=== PATIENT | female | born 1960 | race Caucasian/White ===

== ENCOUNTER 2020-08-17 12:48 | Emergency (ER) | payer MEDICAID ==
[~2020-08-17] VITALS: Ht 172.7 cm; Wt 74.8 kg
[2020-08-17 12:59] VITALS: BP_SYST 158
--- NOTE | 2020-08-17 13:03 | NUR ---
placed in bed 6
--- NOTE | 2020-08-17 13:05 | NUR ---
Pt bib EMS s/p fall from 6ft ladder while putting up kathrin lights. Reports hitting her head and her left shoulder. Denies any pain at this time, states she's just sore. V/S stable, pt is afebrile. Currently resting in bed, will continue to monitor.
--- NOTE | 2020-08-17 13:10 | NUR ---
ER Dr. Perez at bedside examining patient.
--- NOTE | 2020-08-17 13:20 | NUR ---
Patient transported to radiology via wheelchair, accompanied by staff.
[2020-08-17 14:25] VITALS: BP_SYST 158
--- NOTE | 2020-08-17 14:26 | NUR ---
Patient given written and verbal discharge instructions and verbalizes understanding. ER MD discussed with patient the results and treatment provided. Patient in stable condition. ID arm band removed. Rx of Motrin given. Patient educated on pain management and to follow up with PMD. Pain Scale 0. Opportunity for questions provided and answered. Medication side effect fact sheet provided.
== END 2020-08-17 14:25 | disposition home or self-care (01) ==
LOC: SED 12:48
DX: S20.219A Contusion of unspecified front wall of thorax, initial encounter (principal); S00.03XA Contusion of scalp, initial encounter; R03.0 Elevated blood-pressure reading, without diagnosis of hypertension; E11.9 Type 2 diabetes mellitus without complications; W11.XXXA Fall on and from ladder, initial encounter; Y93.89 Activity, other specified; Y92.89 Other specified places as the place of occurrence of the external cause; Y99.8 Other external cause status
CPT/HCPCS: 70450-TC; 71045; 71100; 72125-TC; 76376; 99285

== ENCOUNTER 2020-11-20 17:46 | Emergency (ER) | payer MEDICAID ==
[~2020-11-20] VITALS: Ht 170.2 cm; Wt 81.6 kg
[2020-11-20 18:00] VITALS: BP_SYST 148
[2020-11-20] MEDS ORDERED: NACL 0.9% 1,000 ML IV ONE (18:30)
[2020-11-20] MEDS ORDERED: KETOROLAC TROMETHAMINE 30 MG VIAL IVP ONE (18:30)
[2020-11-20 19:09] LABS: BASOPHILS % (AUTO) 0.5 % (0.0-2.0); EOSINOPHILS # (AUTO) 0.1 K/uL (0.0-0.4); EOSINOPHILS % (AUTO) 1.5 % (0.0-4.0); HEMATOCRIT 39.3 % (36-48); HEMOGLOBIN 13.5 g/dL (12.0-16.0); LYMPHOCYTES # (AUTO) 2.2 K/uL (1.0-5.5); LYMPHOCYTES % (AUTO) 31.9 % (20.5-51.5); MEAN CORPUSCULAR HEMOGLOBIN 31 pg (27-31); MEAN CORPUSCULAR HGB CONC 35 % (32-36); MEAN CORPUSCULAR VOLUME 89 fL (79.0-98.0); MONOCYTES # (AUTO) 0.4 K/uL (0.0-1.0); MONOCYTES % (AUTO) 6.1 % (1.7-9.3); PLATELET COUNT (AUTO) 178 K/uL (130-430); RED BLOOD CELL COUNT(AUTO) 4.44 MIL/uL (4.2-6.2); RED CELL DISTRIBUTION WIDTH 13.6 % (9.0-15.0); WHITE BLOOD COUNT (AUTO) 6.7 K/uL (4.8-10.8)
[2020-11-20] MEDS ORDERED: ONDA4TAB5 PO (19:28)
[2020-11-20] MEDS ORDERED: CIPR-211 PO (19:28)
[2020-11-20] MEDS ORDERED: IBUP-1971 PO (19:28)
[2020-11-20 19:29] LABS: CALCIUM 9.5 mg/dL (8.4-11.0); POTASSIUM 4.4 mmol/L (3.5-5.1)
[2020-11-20 19:35] LABS: ALBUMIN 3.8 g/dL (3.4-4.8); TOTAL BILIRUBIN 0.2 mg/dL (0.0-1.0)
[2020-11-20 19:35] LABS: BILIRUBIN,URINE NEGATIVE (NEGATIVE); BLOOD, URINE 1+ (NEGATIVE); COLOR,URINE YELLOW (YELLOW); GLUCOSE,URINE 3+ (NEGATIVE); KETONES,URINE NEGATIVE (NEGATIVE); LEUKOCYTE ESTERASE ,URINE NEGATIVE (NEGATIVE); NITRITE, URINE NEGATIVE (NEGATIVE); PROTEIN URINE 1+ (NEGATIVE)
[2020-11-20 19:50] LABS: CLARITY/URINE HAZY (CLEAR)
[2020-11-20 19:54] LABS: BACTERIA,URINE MODERATE /HPF (None Seen)
[2020-11-20] MEDS ORDERED: cefTRIAXone 1 GM IVPB PREMIX 50 ML IV ONE (20:15)
[2020-11-20 23:11] VITALS: BP_SYST 127
== END 2020-11-20 23:10 | disposition home or self-care (01) ==
LOC: SED 17:46
DX: D36.7 Benign neoplasm of other specified sites (principal)
CPT/HCPCS: 36415; 76830; 76857; 80053; 81000; 85025; 87086; 96361; 96365; 96375; 99284; J0696; J1885; J7030

== ENCOUNTER 2021-11-28 05:56 | Emergency (ER) | payer OTHER, MEDICAID ==
[~2021-11-28] VITALS: Ht 175.3 cm; Wt 81.6 kg
[~2021-11-28 05:56] MED LIST: IBUP-1971 PO
[2021-11-28 06:00] VITALS: BP_SYST 118
--- NOTE | 2021-11-28 06:04 | NUR ---
Patient to ER bed 4 to gown for evaluation. Side rails up. Report given to Susan JENNINGS(reg).
--- NOTE | 2021-11-28 06:05 | NUR ---
61 YR OLD A[facility] AMBULATORY FEMALE WITH COMPLAINT OF LEFT LOWER SHARP BACK PAIN 9/10 THAT RADIATES DOWN LEFT HIP TO LEFT LEG FOR TWO DAYS. PT SUSPECTS THAT SHE MAY HAVE UTI, DUE TO BURNING WITH URINATION. PT DENIES ANY CHEST PAIN, OR SOB. PT REPORTS HX, OF HTN, DM II, AND PREVIOUS FALL TWO YEARS AGO.
[2021-11-28] MEDS ORDERED: LIDOCAINE 1%, 20 ML MDV 20 ML ONE (06:29)
[2021-11-28] MEDS ORDERED: LIDOCAINE 1% 10 MG/ML, 20 ML MDV SUBCUT ONE (06:30)
--- NOTE | 2021-11-28 06:32 | NUR ---
MD AT THE BEDSIDE TO EDUCATE PT REGARDING PAIN MEDICATION INJECTIONS, PT VERBALIZED UNDERSTANDING. PT GAVE VERBAL CONSENT TO MD FOR INJECTIONS. PT POSITIONED PRONE AND MD INJECTED PT IN VARIOUS SITES FOR PAIN RELIEF, PT TOLERATED PROCEDURE WELL. PENDING LUMBAR XRAY. WILL MONITOR NEEDED
--- NOTE | 2021-11-28 06:49 | NUR ---
PT OFF UNIT FOR XRAY AT THIS TIME
--- NOTE | 2021-11-28 06:52 | NUR ---
URINE SENT TO LAB
--- NOTE | 2021-11-28 06:57 | NUR ---
PT BACK TO UNIT
--- NOTE | 2021-11-28 07:09 | NUR ---
report given to page
[2021-11-28] MEDS ORDERED: KETOROLAC TROMETHAMINE 30 MG VIAL IM ONE (07:30)
[2021-11-28] MEDS ORDERED: DIAZEPAM 5 MG TABLET (VALIUM) PO ONE (07:30)
[2021-11-28] MEDS ORDERED: KETOROLAC TROMETHAMINE 30 MG VIAL ONE (07:55)
--- NOTE | 2021-11-28 08:08 | NUR ---
PATIENT ALERT, ORIENTED X4 C/O LOW BACK PAIN VALIUM/TORADOL GIVEN WILL CONTINUE TO MONITOR.
[2021-11-28 08:21] LABS: BILIRUBIN,URINE NEGATIVE (NEGATIVE); BLOOD, URINE NEGATIVE (NEGATIVE); CLARITY/URINE CLEAR (CLEAR); COLOR,URINE YELLOW (YELLOW); GLUCOSE,URINE 1+ (NEGATIVE); KETONES,URINE TRACE (NEGATIVE); LEUKOCYTE ESTERASE ,URINE TRACE (NEGATIVE); NITRITE, URINE POSITIVE (NEGATIVE); PROTEIN URINE 1+ (NEGATIVE)
[2021-11-28 08:25] LABS: BACTERIA,URINE MODERATE /HPF (None Seen); RBC,URINE 0-3 /HPF (0-3)
[2021-11-28 08:26] LABS: MUCUS,URINE 1+ /LPF (None Seen)
[2021-11-28] MEDS ORDERED: CEPH-548 PO (08:38)
[2021-11-28] MEDS ORDERED: cefTRIAXone 1 GM in LIDOCAINE 1%, 20 ML MDV 2.1 ML IM ONE (08:45)
[2021-11-28 09:00] VITALS: BP_SYST 138
--- NOTE | 2021-11-28 09:01 | NUR ---
PATIENT CONDITION STABLE D/C HOME WITH INSTRUCTIONS AFTER CARE REVIEWED UNDERSTOOD LEFT ER AMBULATORY WITH STEADY GAIT.
--- NOTE | 2021-11-28 09:02 | NUR ---
Patient given written and verbal discharge instructions and verbalizes understanding. ER MD discussed with patient the results and treatment provided. Patient in stable condition. ID arm band removed. Rx of given. Patient educated on pain management and to follow up with PMD. Pain Scale . Opportunity for questions provided and answered. Medication side effect fact sheet provided.
== END 2021-11-28 09:02 | disposition home or self-care (01) ==
LOC: SED 05:56
DX: N39.0 Urinary tract infection, site not specified (principal); M54.42 Lumbago with sciatica, left side; I10 Essential (primary) hypertension; E11.9 Type 2 diabetes mellitus without complications
CPT/HCPCS: 20553; 72100; 81000; 87086; 96372; 99284; J0696; J1885; J2001